=== PATIENT | male | born 1970 | race Two or more races ===

== ENCOUNTER 2018-11-14 18:45 | Emergency (ER) | payer OTHER ==
[~2018-11-14] VITALS: Ht 177.8 cm; Wt 99.8 kg
[2018-11-14] MEDS ORDERED: cefTRIAXone 1GM/50ML D5W 50 ML IV ONE (20:00)
[2018-11-14] MEDS ORDERED: ONDANSETRON HCL 4 MG/2 ML VIAL IV ONE (20:15)
[2018-11-14] MEDS ORDERED: MORPHINE SULFATE 4 MG/ML SYR/VIAL IV ONE (20:15)
[2018-11-14 21:00] VITALS: BP 204/124
[2018-11-14] MEDS ORDERED: LORazepam 2MG/ML-1ML VIAL IV ONE (21:00)
== END 2018-11-14 21:38 | disposition short-term general hospital (02) ==
LOC: ER 18:53
DX: S52.352A Displaced comminuted fracture of shaft of radius, left arm, initial encounter for closed fracture (principal); S52.252A Displaced comminuted fracture of shaft of ulna, left arm, initial encounter for closed fracture; R51 Headache; V49.49XA Driver injured in collision with other motor vehicles in traffic accident, initial encounter; Y93.I9 Activity, other involving external motion; Y92.488 Other paved roadways as the place of occurrence of the external cause; Y99.8 Other external cause status
CPT/HCPCS: 70450; 71045; 72125; 73090; 96365; 96375; 99285; J0696; J2060; J2270; J2405